=== PATIENT | male | born 1980 | race African-American/Black ===

== ENCOUNTER 2016-03-13 | Emergency (ER) | payer SELFPAY | END 2016-03-13 09:05 | disposition home or self-care (01) ==

== ENCOUNTER 2016-04-28 20:38 | Emergency (ER) | payer SELFPAY ==
[2016-04-28] MEDS ORDERED: ALBUTEROL NEB 2.5 MG/3 ML INH STA (20:46)
[2016-04-28] MEDS ORDERED: predniSONE 20 MG TABLET PO STA (20:46)
[2016-04-28] MEDS ORDERED: ALBUTEROL NEB 2.5 MG/3 ML INH ONE (20:50)
[2016-04-28] MEDS ORDERED: predniSONE 20 MG TABLET ONE (21:00)
[2016-04-28] MEDS ORDERED: ALBUTEROL 8 GM INHALER INH ONE (21:05)
[2016-04-28] MEDS ORDERED: ALBUTEROL 8 GM INHALER INH STA (21:06)
== END 2016-04-28 21:30 | disposition home or self-care (01) ==
DX: J45.21 Mild intermittent asthma with (acute) exacerbation (principal); R03.0 Elevated blood-pressure reading, without diagnosis of hypertension
CPT/HCPCS: 94640; 94664; 99283; 99284; A9270; J7512; J7613

== ENCOUNTER 2017-11-04 20:22 | Emergency (ER) | payer BC, OTHER ==
[2017-11-04] MEDS ORDERED: predniSONE 20 MG TABLET PO STA (20:39)
--- NOTE | 2017-11-04 20:42 | ED Physician Documentation ---
PD HPI UPPER EXT INJURY - Stated complaint Stated Complaint: R SHOULDER PX - Chief complaint Chief Complaint: Ext Problem - History obtained from History obtained from: Patient - History of Present Illness Location: Right (Without specific injury for the last 2 months he has had pain in the right arm, he points to the distal medial bicep and then up to the posterior shoulder with occasional right-sided neck pain. He has had tingling especially in the second through fourth fingers of the right hand.) - Additonal information Additional information: He tried to call her primary care office for an appointment but was told that it would be about a month and a half for new patient appointment. Review of Systems Constitutional: denies: Fever, Chills Cardiac: denies: Chest pain / pressure, Palpitations Respiratory: denies: Dyspnea, Cough PD PAST MEDICAL HISTORY - Past Medical History Respiratory: Asthma - Past Surgical History Past Surgical History: No - Present Medications Home Medications: Ambulatory Orders Medication Instructions Recorded Confirmed Albuterol Sulf [Ventolin Hfa 1 - 2 puffs INH Q4HR PRN 03/13/16 03/13/16 Inhaler] Azithromycin [Zithromax] 250 mg PO DAILY #6 tablet 03/13/16 Dexamethasone [Decadron] 4 mg PO DAILY #5 tablet 03/13/16 guaiFENesin/CODEINE [Robitussin AC] 10 ml PO Q6H PRN #240 ml 03/13/16 Albuterol Sulfate [Proventil Hfa 1 - 2 puffs IH Q4H PRN #1 04/28/16 Inhaler] [email or web address].[email or web address] predniSONE [Deltasone] 60 mg PO DAILY 5 Days tablet 04/28/16 predniSONE [Deltasone] 20 mg PO [id number] #[id number] tab 11/04/17 - Allergies Allergies/Adverse Reactions: Allergies Allergy/AdvReac Type Severity Reaction Status Date / Time No Known Drug Allergies Allergy Verified 11/04/17 20:27 - Social History Does the pt smoke?: No Smoking Status: Never smoker Does the pt drink ETOH?: Yes Does the pt have substance abuse?: No - Immunizations Immunizations are current?: Yes PD ED PE NORMAL - Vitals Vital signs reviewed: Yes - General General: Alert and oriented X 3, No acute distress - Neck Neck: Supple, no meningeal sign, Other (Mild tenderness of the right neck) - Extremities Extremities: Other (He has full range of motion of the right shoulder. He has no tenderness about the right arm. He has mildly diminished sensation on the medial side of the dorsal right hand and medial right bicep. He has equal [employer] strength, thumb extension, interossei strength. He has slightly decreased wrist extension strength on the right compared to the left.) - Neuro Neuro: Alert and oriented X 3, Normal speech Results - Vitals Vitals: Vital Signs - 24 hr 11/04/17 20:24 Temperature 36.8 C Heart Rate 81 Respiratory 16 Rate Blood Pressure 137/66 H O2 Saturation 100 Oxygen O2 Source Room air PD MEDICAL DECISION MAKING - ED course ED course: His history and physical is most consistent with a cervical radiculopathy and follow-up was advised. - Sepsis Event Vital Signs: Vital Signs - 24 hr 11/04/17 20:24 Temperature 36.8 C Heart Rate 81 Respiratory 16 Rate Blood Pressure 137/66 H O2 Saturation 100 Oxygen O2 Source Room air Departure - Departure Disposition: 01 Home, Self Care Clinical Impression: Cervical radiculopathy Condition: Good Record reviewed to determine appropriate education?: Yes Instructions: ED Cervical Radiculopathy Follow-Up: [facility] [Provider Group] [facility] [Provider Group] Prescriptions: predniSONE [Deltasone] 20 mg PO [id number] #21 tab Comments: As discussed the seems most consistent with a pinched nerve in your neck. Call around to find a primary care physician that can see new sooner than a month and a half from now. As discussed you may need follow-up testing that cannot be done from the emergency department such as MRI of the neck and/or nerve conduct ion studies. Return if worse. Your blood pressure was elevated today on check into the emergency department. This does not mean that you have hypertension, it is a common phenomenon to come to the emergency department and have elevated blood pressure. I recommend that you see your primary care physician within the week to have it rechecked when you are feeling better. Forms: Activity restrictions
[2017-11-04 20:49] VITALS: BP 132/65
== END 2017-11-04 20:49 | disposition home or self-care (01) ==
LOC: ED 20:22
DX: M54.12 Radiculopathy, cervical region (principal); R03.0 Elevated blood-pressure reading, without diagnosis of hypertension
CPT/HCPCS: 99283; J7512